=== PATIENT | male | born 1970 | race Caucasian/White ===

== ENCOUNTER 2017-07-07 09:20 | Emergency (ER) | payer OTHER ==
[~2017-07-07] VITALS: Ht 176.5 cm; Wt 98.0 kg
[~2017-07-07 09:20] MED LIST: AUGMENTIN875TAB PO
[2017-07-07] MEDS ORDERED: FLUTICASONE (09:47)
[2017-07-07] MEDS ORDERED: TESTOSTERONE PO (09:48)
[2017-07-07] MEDS ORDERED: BENADRYL25 M1 PO (09:48)
[2017-07-07 10:44] LABS: HEMATOCRIT 47.8 % (39.0-50.0); HEMOGLOBIN 16.2 g/dl (14.0-18.0); IMMATURE GRANULOCYTES 0.5 % (0.0-1.0); MEAN CELL VOLUME 86.6 fL CALC (80.0-100.0); MEAN CORPUSCULAR HGB 29.3 pG CALC (26.0-32.0); MEAN CORPUSCULAR HGB CONC 33.9 g/L CALC (32.0-36.0); NEUT# 8.78 thou/uL (1.82-7.42); RED BLOOD COUNT 5.52 mill/uL (4.70-6.10); RED CELL DISTRI WIDTH 13.2 % (11.5-15.5)
[2017-07-07 10:54] LABS: ALBUMIN 4.6 g/dL (3.2-5.0); ALKALINE PHOSPHATASE 74 u/l (38-126); ANION GAP 21 (6-22 (CALC)); BILIRUBIN, TOTAL 0.7 mg/dL (0.0-1.4); BUN 14 mg/dL (9-20); BUN/CREATININE RATIO 16 (12-20 (CALC)); CARBON DIOXIDE 20 mmol/l (22-30); CHLORIDE 107 mmol/l (95-108); CREATININE 0.9 mg/dL (0.7-1.3); GFR > 60 ML/MIN (>=60 (CALC)); GFR FOR AFR.AMER. > 60 ML/MIN (>=60 (CALC)); POTASSIUM 3.8 mmol/l (3.5-5.1); SGOT/AST 22 u/l (17-59); SGPT/ALT 49 u/l (21-72); SODIUM 144 mmol/l (137-146); TOTAL PROTEIN 7.7 g/dL (6.3-8.2)
[2017-07-07 11:24] LABS: TSH, 3RD GENERATION 1.74 uIU/mL (0.47 - 4.68)
[2017-07-07] MEDS ORDERED: XANAX0.5 MG PO (11:54)
[2017-07-07 13:30] VITALS: BP 140/70
== END 2017-07-07 13:28 | disposition home or self-care (01) | DRG 880 ==
LOC: ED 09:20
PROVIDERS: Emergency Medicine
DX: F41.9 Anxiety disorder, unspecified (principal); E29.1 Testicular hypofunction